=== PATIENT | male | born 1990 | race Caucasian/White ===

== ENCOUNTER 2021-12-27 14:52 | Inpatient (IN) | payer BC ==
[~2021-12-27] VITALS: Ht 180.3 cm; Wt 127.0 kg
[2021-12-27 15:16] LABS: HEMATOCRIT 45.7 % (36.7-47.1); MEAN CORPUSCULAR HEMOGLOBIN 30.7 uug (23.8-33.4); MEAN CORPUSCULAR VOLUME 89.1 fL (73.0-96.2); PLATELET COUNT (AUTO) 337 K/uL (152-348)
[2021-12-27 15:27] LABS: CREATININE 1.2 mg/dL (0.6-1.3); POTASSIUM 3.8 mmol/L (3.5-5.1)
[2021-12-27 15:32] LABS: BILIRUBIN,TOTAL 0.4 mg/dL (0.2-1.0); TOTAL PROTEIN, SERUM 8.8 g/dL (6.4-8.2)
--- NOTE | 2021-12-27 15:35 | NUR ---
Seizure precaution observed, bilateral upper half side rails padded placed.
[2021-12-27 15:40] LABS: THYROID STIMULATING HORMONE 1.111 mIU/mL (0.358-3.740)
--- NOTE | 2021-12-27 17:01 | NUR ---
Called [facility] for panel call for admission, no md available, will be receiving a call back.
--- NOTE | 2021-12-27 17:44 | NUR ---
Called [facility] again for admission panel call, will be expecting a call back per Mayela.
--- NOTE | 2021-12-27 18:45 | NUR ---
Called [facility], financial representative said that they left a message for Dr. Rosas, will be receiving a call back once available.
--- NOTE | 2021-12-27 19:01 | NUR ---
Endorsed to Marcela NGUYEN.
--- NOTE | 2021-12-27 20:00 | NUR ---
Patient has been accepted by Roman Rosas
[2021-12-27] MEDS ORDERED: levETIRAcetam 500 MG/5 ML VIAL IV ONE (20:07)
[2021-12-27] MEDS ORDERED: levETIRAcetam IV 1,000 MG in IV DEXTROSE 5% 100 ML IV ONE (20:15)
--- NOTE | 2021-12-27 20:25 | NUR ---
Called 3rd floor for bed, spoke with Diya NGUYEN, will call me back for room number
--- NOTE | 2021-12-27 20:30 | NUR ---
Diya NGUYEN called back. Patient will be admitted to room TELE 307
--- NOTE | 2021-12-27 20:53 | NUR ---
Patient walked to the restroom with steady gait, NAD noted
--- NOTE | 2021-12-27 21:19 | NUR ---
report given to Kristie NGUYEN
[2021-12-27 21:50] VITALS: BP 127/72
--- NOTE | 2021-12-27 21:52 | NUR ---
Pt. admitted to , under care of Roman Rosas LEGAL SUPPORT ASSISTANT [employer] completed Kristie RN aware of patient's arrival
[2021-12-27] MEDS ORDERED: ACETAMINOPHEN 325 MG TABLET PO PRN (22:00)
[2021-12-27] MEDS ORDERED: ONDANSETRON 4 MG/2 ML VIAL IV PRN (22:00)
[2021-12-27] MEDS: ENOXAPARIN SODIUM 40 MG/0.4 ML DISP.SYRIN SQ SCH (22:18)
[2021-12-27] MEDS: IV LACTATED RINGERS SOLUTION 1,000 ML IV PRN (22:21)
[2021-12-28] VITALS: BP 127/74
[2021-12-28 01:17] LABS: *BILIRUBIN,URIN NEGATIVE (NEGATIVE); *BLOOD, URINE NEGATIVE (NEGATIVE); *CLARITY,URINE CLEAR (CLEAR); *COLOR,URINE YELLOW (YELLOW); *KETONES,URINE NEGATIVE (NEGATIVE); *UROBILINOGEN,URINE 0.2 E.U./dl (NORMAL); LEUKOCYTE ESTERASE ,URINE NEGATIVE (NEGATIVE); NITRITE, URINE NEGATIVE (NEGATIVE); UGLUCOSE NEGATIVE (NEGATIVE)
[2021-12-28 01:33] LABS: *AMPHETAMINE, URINE NEGATIVE (NEGATIVE); *CANNABINOID, URINE NEGATIVE (NEGATIVE); *COCCAINE, URINE NEGATIVE (NEGATIVE); *OPIATE, URINE NEGATIVE (NEGATIVE); *PHENCYCLIDINE SCREEN,URINE NEGATIVE (NEGATIVE)
[2021-12-28 04:00] VITALS: BP 125/70
--- NOTE | 2021-12-28 05:40 | NUR ---
Admitted to Tele, SR on monitor. No distress noted. Denies SOB, DAUGHERTY, N/V. IV site intact. Seizure precautions in place. Able to make needs known and able to ambulate. Safety maintained. Will endorse to day shift.
[2021-12-28 05:44] LABS: HEMATOCRIT 41.6 % (36.7-47.1); MEAN CORPUSCULAR HEMOGLOBIN 30.6 uug (23.8-33.4); MEAN CORPUSCULAR VOLUME 89.4 fL (73.0-96.2); PLATELET COUNT (AUTO) 296 K/uL (152-348)
[2021-12-28 05:53] LABS: BILIRUBIN,TOTAL 0.3 mg/dL (0.2-1.0); PHOSPHOROUS 3.8 mg/dL (2.5-4.9); TOTAL PROTEIN, SERUM 7.1 g/dL (6.4-8.2)
[2021-12-28 05:58] LABS: THYROID STIMULATING HORMONE 1.317 mIU/mL (0.358-3.740)
--- NOTE | 2021-12-28 06:35 | NUR ---
Pt had 3.3 second pause on the monitor. Pt is awake and alert, no distress noted. VSS. Dr. Montez notified.
[2021-12-28] MEDS ORDERED: levETIRAcetam 500 MG TABLET PO SCH (09:00)
--- NOTE | 2021-12-28 10:07 | NUR ---
[employer]BILE [employer] WAS CALLED AT 1008 BY BINGO WORKER VOICEMAIL WAS LEFT. AUTOMOBILE RACER WAS CALLED A SECOND TIME AT THIS TIME TO FOLLOW UP. NO CALL BACK AT THIS TIME.
--- NOTE | 2021-12-28 10:11 | NUR ---
RT CAR SUPERVISOR CALLED BACK. PER TECH HE WILL BE HERE NOON TIME AFTER LUNCH TODAY.
[2021-12-28 12:00] VITALS: BP 127/75
[2021-12-28 16:00] VITALS: BP 111/64
[2021-12-28] MEDS: IV LACTATED RINGERS SOLUTION 1,000 ML IV PRN (16:29)
[2021-12-28] MEDS: levETIRAcetam 500 MG TABLET PO SCH ×2 (16:47→22:58)
[2021-12-28] MEDS: CLINDAMYCIN HCL 300 MG CAPSULE PO SCH ×2 (17:41→20:10)
[2021-12-28 20:00] VITALS: BP 123/71
[2021-12-28] MEDS: ENOXAPARIN SODIUM 40 MG/0.4 ML DISP.SYRIN SQ SCH (20:10)
[2021-12-29 00:16] VITALS: BP 126/68
[2021-12-29 04:00] VITALS: BP 112/67
[2021-12-29] MEDS: IV LACTATED RINGERS SOLUTION 1,000 ML IV PRN (06:16)
--- NOTE | 2021-12-29 08:07 | NUR ---
RECEIVED PT AOX4. AMBULATORY. NO ACUTE DISTRESS NOTED. NO PAIN OR SEIZURE ACTIVITY NOTED. NO SOB. WILL F/U WITH MD FOR DISCHARGE PLAN.
[2021-12-29] MEDS: levETIRAcetam 500 MG TABLET PO SCH (08:41)
[2021-12-29] MEDS: CLINDAMYCIN HCL 300 MG CAPSULE PO SCH ×2 (08:41→13:16)
[2021-12-29 09:21] VITALS: BP 112/66
[2021-12-29 11:23] VITALS: BP 103/63
--- NOTE | 2021-12-29 12:00 | NUR ---
PT WILL BE DISCHARGE TODAY. FAMILY NOTIFIED. SON ASK FOR INFO REGARDING SNF PLACEMENT. REFER SON TO CM. WILL F/U Addendum: 12/29/21 at 1206 by ALISE OLIVER RN DISREGARD NOTES. WRONG PT.
--- NOTE | 2021-12-29 12:06 | NUR ---
PT WAS SEEN BY . MD CLEARED PT FOR DISCHARGE.
[2021-12-29] MEDS ORDERED: CLIN300C12 PO (15:05)
--- NOTE | 2021-12-29 16:08 | NUR ---
pt is discharge. all belongings accounted for. pt ambulatory . no dizziness noted. no sob. 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
== END 2021-12-29 16:00 | disposition home or self-care (01) | DRG 74 ==
LOC: ER 14:52 → TELE3 20:00
PROVIDERS: ADMIT Nurse Practitioner Acute Care; ATTEND Nurse Practitioner Acute Care
DX: G90.8 Other disorders of autonomic nervous system (principal); E66.2 Morbid (severe) obesity with alveolar hypoventilation; D72.829 Elevated white blood cell count, unspecified; K76.0 Fatty (change of) liver, not elsewhere classified; Z20.822 Contact with and (suspected) exposure to COVID-19; Z68.39 Body mass index [BMI] 39.0-39.9, adult; R00.1 Bradycardia, unspecified; R74.01 Elevation of levels of liver transaminase levels; K11.8 Other diseases of salivary glands
CPT/HCPCS: 36415; 70450; 71045; 83735; 84100; 84443; 85025; 87040; 87070; 93005; 93307; 94660; 95819; A4663; G0378; J1650; J1953; J7120